=== PATIENT | female | born 1975 | race Caucasian/White ===

== ENCOUNTER 2021-07-11 08:43 | Emergency (ER) | payer OTHER ==
[~2021-07-11] VITALS: Ht 162.6 cm; Wt 65.8 kg
[2021-07-11] MEDS ORDERED: VENTOLIN HFA18 GM IH (09:08)
[2021-07-11] MEDS ORDERED: BREO ELLIPTA 21 EACH IH (09:08)
== END 2021-07-11 12:43 | disposition home or self-care (01) ==
LOC: ER 08:43
DX: J45.998 Other asthma (principal)